=== PATIENT | female | born 1990 ===

== ENCOUNTER 2017-03-08 11:29 | Emergency (ER) | payer OTHER ==
[2017-03-08 11:35] VITALS: BMI 23.2
[2017-03-08 11:36] VITALS: RESP 18; TEMP 97.7; O2SAT 100
[2017-03-08] MEDS ORDERED: Sodium Chloride 0.9% 1,000 ML IV STA (11:46)
--- NOTE | 2017-03-08 11:50 | ED PDOC ---
Arrival/HPI - General Chief Complaint: GI Problem Time Seen by Provider: 03/08/17 11:43 Historian: Patient - History of Present Illness Narrative History of Present Illness (Text): 03/08/17 12:06 A 27 year old female, who is 35 weeks pageant, with no significant past medical history, is presenting to the emergency department with daily episodes of non- bloody diarrhea for the past 3 days. The patient reports that she has diarrhea once a day and once she had 1 episode of green diarrhea. She denies any recent travel, bloody stools, vomiting, fever, or any other complaints at this time. OBGYN: Dr. Mccain - [place] Time/Duration: < week (3 days ) Symptom Onset: Other Symptom Course: Unchanged Quality: Other Activities at Onset: Rest, Light Context: Home Past Medical History - Provider Review Nursing Documentation Reviewed: Yes - Infectious Disease Hx of Infectious Diseases: None - Psychiatric Hx Substance Use: No - Anesthesia Hx Anesthesia: No Family/Social History - Physician Review Nursing Documentation Reviewed: Yes Family/Social History: Unknown Family HX Smoking Status: Never Smoked Hx Alcohol Use: No Hx Substance Use: No Allergies/Home Meds Allergies/Adverse Reactions: Allergies No Known Allergies Allergy (Verified 03/08/17 11:35) Home Medications: Home Meds Medication Instructions Recorded Confirmed Vit Calc,Iron,Folic 1 tab PO DAILY 03/08/17 03/08/17 [ Vitamins] Review of Systems - Physician Review All systems were reviewed & negative as marked: Yes - Review of Systems Constitutional: absent: Fevers Gastrointestinal: Diarrhea (non-bloody for 3 days). absent: Abdominal Pain, Nausea, Vomiting, Appetite Changes Physical Exam Vital Signs Reviewed: Yes Vital Signs Temp Pulse Resp BP Pulse Ox 03/08/17 13:26 90 18 125/78 100 03/08/17 11:36 97.7 F 94 H 18 123/80 100 Temperature: Afebrile Blood Pressure: Normal Pulse: Tachycardic Respiratory Rate: Normal Appearance: Positive for: Well-Appearing, Non-Toxic, Comfortable Pain Distress: None Mental Status: Positive for: Alert and Oriented X 3 - Systems Exam Head: Present: Atraumatic, Normocephalic Pupils: Present: PERRL Extroacular Muscles: Present: EOMI Conjunctiva: Present: Normal Mouth: Present: Moist Mucous Membranes Neck: Present: Normal Range of Motion Respiratory/Chest: Present: Clear to Auscultation, Good Air Exchange. No: Respiratory Distress, Accessory Muscle Use Cardiovascular: Present: Regular Rate and Rhythm, Murmurs (systolic murmur), Normal S1, S2 Abdomen: Present: Normal Bowel Sounds, Other (Gravid- fundus 2 cm below xiphoid processes). No: Tenderness, Distention, Peritoneal Signs Back: Present: Normal Inspection Upper Extremity: Present: Normal Inspection. No: Cyanosis, Edema Lower Extremity: Present: Normal Inspection. No: Edema Neurological: Present: GCS=15, CN II-XII Intact, Speech Normal Skin: Present: Warm, Dry, Normal Color. No: Rashes Psychiatric: Present: Alert, Oriented x 3, Normal Insight, Normal Concentration Medical Decision Making ED Course and Treatment: 03/08/17 11:49 Impression: A 27 year old female with diarrhea. Differential Diagnosis included but are not limited to: Plan: -- ED-NPO -- Labs -- Urinalysis -- IV fluids -- Reassess and disposition Progress Notes: 03/08/17 12:38 Case discussed with covering OB doctor for Dr. Contreras, who is the patients primary OB. On January 16, 2017 the patients hemoglobin level was 8.1, patient was instructed to follow up for additional testing, but did not do so. - Lab Interpretations Lab Results: 03/08/17 12:00 03/08/17 12:00 Lab Results 03/08/17 12:00: Sodium 138, Potassium 3.8, Chloride 104, Carbon Dioxide 24, Anion Gap 14, BUN 11, Creatinine 0.7, Est GFR ( Amer) > 60, Est GFR (Non- Af Amer) > 60, Random Glucose 92, Calcium 9.7, Total Bilirubin 0.8, AST 37, ALT 40, Alkaline Phosphatase 189 H, Total Protein 8.2, Albumin 4.1, Globulin 4.1, Albumin/Globulin Ratio 1.0 L, Lipase 140 03/08/17 12:00: WBC 10.0, RBC 3.92, Hgb 7.6 L, Hct 26.7 L, MCV 68.1 L, MCH 19.4 L, MCHC 28.5 L, RDW 18.6 H, Plt Count 409, MPV 9.3, Gran % 66.3, Lymph % (Auto) 23.7, [place] % (Auto) 9.4 H, Eos % (Auto) 0.4 L, Baso % (Auto) 0.2, Gran # 6.66 H , Lymph # 2.4, [place] # 0.9 H, Eos # 0.0, Baso # 0.02 03/08/17 11:50: Urine Color Yellow, Urine Appearance Clear, Urine pH 6.0, Ur Specific [place] 1.025, Urine Protein Trace H, Urine Glucose (UA) Negative, Urine Ketones Trace H, Urine Blood Negative, Urine Nitrate Negative, Urine Bilirubin Negative, Urine Urobilinogen 0.2, Ur Leukocyte Esterase Negative, Urine RBC 0 - 2, Urine WBC 0 - 2, Ur Epithelial Cells Many, Amorphous Sediment Few, Urine Bacteria Mod I have reviewed the lab results: Yes - Medication Orders Current Medication Orders: Discontinued Medications Sodium Chloride (Sodium Chloride 0.9%) 1,000 mls @ 1,000 mls/hr IV .Q1H STA Stop: 03/08/17 12:45 Last Admin: 03/08/17 12:07 Dose: 1,000 mls/hr - Scribe Statement The provider has reviewed the documentation as recorded by the Scribe Janice Kohler Provider Scribe Attestation: All medical record entries made by the Scribe were at my direction and personally dictated by me. I have reviewed the chart and agree that the record accurately reflects my personal performance of the history, physical exam, medical decision making, and the department course for this patient. I have also personally directed, reviewed, and agree with the discharge instructions and disposition. Disposition/Present on Arrival - Present on Arrival Any Indicators Present on Arrival: No History of DVT/PE: No History of Uncontrolled Diabetes: No Urinary Catheter: No History of Decub. Ulcer: No History Surgical Site Infection Following: None - Disposition Have Diagnosis and Disposition been Completed?: Yes Diagnosis: and not yet delivered in third trimester, Anemia, Diarrhea Disposition: HOME/ ROUTINE Disposition Time: 12:40 Condition: GOOD Discharge Instructions (ExitCare): Iron Deficiency Anemia (ED) Additional Instructions: Thank you for letting us take care of you today. Your provider was Dr. May. You were treated for diarrhea and anemia in . The emergency medical care you received today was directed at your acute symptoms. If you were prescribed any medication, please fill it and take as directed. It may take several days for your symptoms to resolve. Return to the Emergency Department if your symptoms worsen, do not improve, or if you have any other problems. Please contact your doctor or call one of the physicians/clinics you have been referred to that are listed on the Patient Visit Information form that is included in your discharge packet. Bring any paperwork you were given at discharge with you along with any medications you are taking to your follow up visit. Our treatment cannot replace ongoing medical care by a primary care provider (PCP) outside of the emergency department. Thank you for allowing the [facility] team to be part of your care today. Follow up with your [facility] doctor in 2 days for further management of your anemia. Referrals: Rafaela Mace MD [Primary Care Provider] - Follow up with primary
[2017-03-08 12:07] LABS: URINE BILIRUBIN NEGATIVE (NEGATIVE); URINE BLOOD NEGATIVE (NEGATIVE); URINE GLUCOSE (UA) NEGATIVE (NEGATIVE); URINE LEUKOCYTE ESTERASE NEGATIVE Leu/uL (NEGATIVE); URINE NITRATE NEGATIVE (NEGATIVE); URINE PROTEIN TRACE mg/dL (<30 mg/dL); URINE UROBILINOGEN 0.2 E.U./dL (<1 E.U./dL)
[2017-03-08 12:10] LABS: URINE APPEARANCE CLEAR (CLEAR); URINE COLOR YELLOW (YELLOW)
[2017-03-08 12:14] LABS: URINE EPITHELIAL CELLS MANY /hpf (0-5); URINE RBC 0 - 2 /hpf (0-2); URINE WBC 0 - 2 /hpf (0-6)
[2017-03-08 12:15] LABS: URINE AMORPHOUS SEDIMENT FEW; URINE BACTERIA MOD (NEG)
[2017-03-08 12:15] LABS: BASO # 0.02 K/mm3 (0.0-2.0); BASO % 0.2 % (0.0-3.0); EOS % 0.4 % (1.5-5.0); GRAN # 6.66 (1.4-6.5); GRAN % 66.3 % (50.0-68.0); LYMPH # 2.4 (1.2-3.4); LYMPH % 23.7 % (22.0-35.0); MEAN CELL VOLUME 68.1 fL (80.0-105.0); MEAN CORPUSCULAR HEMOGLOBIN 19.4 pg (25.0-35.0); MEAN CORPUSCULAR HGB CONC 28.5 g/dl (31.0-37.0); MEAN PLATELET VOLUME 9.3 fl (7.0-11.0); MONO # 0.9 (0.1-0.6); MONO % 9.4 % (1.0-6.0); PLATELET COUNT 409 10^3/uL (120.0-450.0); RBC 3.92 10^6/uL (3.5-6.1); RED CELL DISTRIBUTION WIDTH 18.6 % (11.5-14.5)
[2017-03-08 12:18] LABS: HEMOGLOBIN 7.6 gm/dL (12.0-16.0)
[2017-03-08 12:26] LABS: ALBUMIN 4.1 g/dL (3.0-4.8); ALT/SGPT 40 U/L (7-56); AST/SGOT 37 U/L (15-39); BLOOD UREA NITROGEN 11 mg/dL (7-21); CALCIUM 9.7 mg/dL (8.4-10.5); GFR AFRICAN-AMERICAN > 60; GFR NON-AFRICAN AMERICAN > 60; LIPASE 140 U/L (23-300)
[2017-03-08 13:26] VITALS: BP 125/78; PULSE 90
== END 2017-03-08 13:27 | disposition home or self-care (01) ==
LOC: ED 11:29
DX: O26.893 Other specified pregnancy related conditions, third trimester (principal); Z3A.35 35 weeks gestation of pregnancy; R19.7 Diarrhea, unspecified; O99.013 Anemia complicating pregnancy, third trimester
CPT/HCPCS: 80053; 81001; 83690; 85025; 87086; 96360; 99285; J7040

== ENCOUNTER 2017-08-13 14:09 | Emergency (ER) | payer SELFPAY ==
[2017-08-13 14:10] VITALS: BMI 23.2
[2017-08-13 14:32] VITALS: BP 161/87; PULSE 81; RESP 18; TEMP 98.3; O2SAT 100
--- NOTE | 2017-08-13 14:36 | ED PDOC ---
Arrival/HPI - General Chief Complaint: Anxiety Time Seen by Provider: 08/13/17 14:14 Historian: Patient - History of Present Illness Narrative History of Present Illness (Text): 08/13/17 14:35 A 27 year old female, who denies any past medical history, presents to the emergency department for evaluation. Patient reports while at work she became short of breath and had palpitations, which lasted for 1 hour and then fully resolved. Patient is currently asymptomatic and denies any discomfort. She reports experiencing an anxiety attack in the past. Patient denies any fever, chills, nausea, vomiting, abdominal pain, chest pain or any other complaints. Time/Duration: Prior to Arrival Symptom Course: Resolved Context: Work Past Medical History - Provider Review Nursing Documentation Reviewed: Yes - Infectious Disease Hx of Infectious Diseases: None - Hematological/Oncological Hx Anemia: Yes - Psychiatric Hx Substance Use: No - Anesthesia Hx Anesthesia: No Family/Social History - Physician Review Nursing Documentation Reviewed: Yes Family/Social History: No Known Family HX Smoking Status: Never Smoked Hx Alcohol Use: No Hx Substance Use: No Allergies/Home Meds Allergies/Adverse Reactions: Allergies No Known Allergies Allergy (Verified 08/13/17 14:18) Home Medications: Home Meds Medication Instructions Recorded Confirmed No Known Home Med 08/13/17 08/13/17 Review of Systems - Physician Review All systems were reviewed & negative as marked: Yes - Review of Systems Constitutional: absent: Fevers, Night Sweats Respiratory: SOB (resolved) Cardiovascular: Palpitations (resolved). absent: Chest Pain Gastrointestinal: absent: Abdominal Pain, Nausea, Vomiting Physical Exam Vital Signs Reviewed: Yes Vital Signs Temp Pulse Resp BP Pulse Ox 08/13/17 14:31 98.3 F 81 18 161/87 H 100 Temperature: Afebrile Blood Pressure: Hypertensive Pulse: Regular Respiratory Rate: Normal Appearance: Positive for: Well-Appearing, Non-Toxic, Comfortable Pain Distress: None Mental Status: Positive for: Alert and Oriented X 3 - Systems Exam Head: Present: Atraumatic, Normocephalic Pupils: Present: PERRL Extroacular Muscles: Present: EOMI Conjunctiva: Present: Normal Mouth: Present: Moist Mucous Membranes Respiratory/Chest: Present: Clear to Auscultation, Good Air Exchange. No: Respiratory Distress, Accessory Muscle Use Cardiovascular: Present: Regular Rate and Rhythm, Normal S1, S2. No: Murmurs Abdomen: Present: Normal Bowel Sounds. No: Tenderness, Distention, Peritoneal Signs Neurological: Present: GCS=15, CN II-XII Intact, Speech Normal Skin: Present: Warm, Dry, Normal Color. No: Rashes Psychiatric: Present: Alert, Oriented x 3, Normal Insight, Normal Concentration Medical Decision Making ED Course and Treatment: 08/13/17 14:35 Impression: A 27 year old female with shortness of breath and palpitations, which have fully resolved Plan: -- EKG -- Reassess and disposition Progress Notes: - EKG Interpretation EKG Interpretation (Text): 08/13/17 14:44 Normal EKG Interpreted by ED Physician: Yes Type: 12 lead EKG - Scribe Statement The provider has reviewed the documentation as recorded by the Erlindaibwilda Arriaza Provider Scribe Attestation: All medical record entries made by the Scribe were at my direction and personally dictated by me. I have reviewed the chart and agree that the record accurately reflects my personal performance of the history, physical exam, medical decision making, and the department course for this patient. I have also personally directed, reviewed, and agree with the discharge instructions and disposition. Disposition/Present on Arrival - Present on Arrival Any Indicators Present on Arrival: No History of DVT/PE: No History of Uncontrolled Diabetes: No Urinary Catheter: No History of Decub. Ulcer: No History Surgical Site Infection Following: None - Disposition Have Diagnosis and Disposition been Completed?: Yes Diagnosis: Palpitations, Anxiety Disposition: HOME/ ROUTINE Disposition Time: 14:50 Patient Problems: Current Active Problems Problem Status Onset Anxiety Acute Palpitations Acute Condition: GOOD Forms: [employer] (Lebanese)
--- NOTE | 2017-08-13 19:29 | CARD ---
APPROVED REPORT EKG Measurement Heart [id number] <Conclusion> Poor data quality, interpretation may be adversely affected Normal sinus rhythm Normal ECG
== END 2017-08-13 15:11 | disposition home or self-care (01) ==
LOC: ED 14:09
DX: F41.9 Anxiety disorder, unspecified (principal); R00.2 Palpitations